=== PATIENT | female | born 1965 | race Caucasian/White ===

== ENCOUNTER 2016-08-29 14:02 | Emergency (ER) | payer OTHER ==
[~2016-08-29] VITALS: Ht 149.9 cm; Wt 77.6 kg
[~2016-08-29 14:02] MED LIST: ATOR-22 PO; CITA40TA4 PO; CRG625 PO; FLNIN/ NAE; GLC850 PO; LEVO112T4 PO; LOSA100T65 PO; NORE1TAB32 PO; PRN1 PO; REPA1TAB42 PO; SITA1TAB27 PO; WLLSR150 PO
[2016-08-29 14:10] VITALS: TEMP 36.7; Ht 149.9 cm; Wt 77.6 kg
[2016-08-29 14:23] VITALS: BP 163/106; PULSE 91; O2SAT 97
--- NOTE | 2016-08-29 14:27 | EMERGENCY ROOM VISIT NOTE ---
History Report prepared by Nacho: Monica Núñez Under the Supervision of: Dr. Lucille Velasquez M.D. First contact with patient: 14:14 Chief Complaint: HYPERTENSION Stated Complaint: HIGH BLOOD PRESSURE 194/119 CALLED DOC History of Present Illness The patient is a 50 year old female who presents to the Emergency Room with complaints of persistent hypertension. She is accompanied by her . The patient went to a [facility] mental health appointment this morning and states her blood pressure was found to be elevated at the appointment, around 160/120. She checked her pressure at a grocery store after the appointment and the highest reading was 194/114. She called her PCPs office after getting home from the store, and they recommended she come to the ED. The patient reports she does not usually check her blood pressure at home, but admits she does have a history of hypertension and takes daily Losartan and Labetalol. She took her medications when she got home this morning, and they provided some relief. She denies any recent changes to her medications. She notes was recently seen here in the ED for the same symptoms in late July. The patient also complains of LUE and low back pain, rating her discomfort as a 5/10. 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 A total of 10 systems reviewed and were otherwise negative. 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, TYPE II OR UNSPEC TYPE, NOT UNCNTRLD (3) HYPERTENSION NOS (4) Hyperthyroidism Family History Diabetes mellitus Hypertension Lung disease Social History Smoking Status: Never Smoker Alcohol Use: none Drug Use: marijuana Marital Status: Housing Status: lives with family Occupation Status: disabled Current/Historical Medications Scheduled Atorvastatin (Lipitor), 20 MG PO QPM Bupropion HCl (Bupropion HCl Sr), 150 MG PO BID Carvedilol (Carvedilol), 6.25 MG PO BID Citalopram (Citalopram Hydrobromide), 40 MG PO QAM Levothyroxine Sodium (Levothyroxine Sodium), 112 MCG PO QAM Losartan Potassium (Cozaar), 100 MG PO QAM Metformin HCl (Metformin HCl), 850 MG PO TID Norethindrone & Eth Estradiol (Cyclafem ), 1 TAB PO DAILY Repaglinide (Repaglinide), 1 MG PO QAM Repaglinide (Prandin), 2 MG PO QD@1200 Repaglinide (Prandin), 1 MG PO QPM Sitagliptin (Januvia), 100 MG PO QAM Scheduled PRN Fluticasone Propionate (Fluticasone Propionate), 2 SPRAYS JW DAILY PRN for Allergy Symptoms Allergies Coded Allergies: Oxaprozin (Unverified Allergy, Severe, lips swelled ;hives, 03/25/15) Naproxen (Verified Allergy, Unknown, FACIAL SWELLING, 03/25/15) POLLEN (Verified Allergy, Unknown, HAY FEVER, 03/25/15) Physical Exam Vital Signs Date Time Temp Pulse Resp B/P Pulse Ox O2 Delivery O2 Flow Rate FiO2 08/29/16 14:23 91 20 163/106 97 Room Air 08/29/16 14:10 36.7 88 18 169/96 97 Room Air Physical Exam CONSTITUTIONAL: The patient appears to be in no acute distress. HEENT: No icterus, moist mucous membranes NECK: No meningismus, trachea is midline. CARDIOVASCULAR: Regular rate, normal perfusion RESPIRATORY: Unlabored breathing. Clear to auscultation. GASTROINTESTINAL: Non-tender GENITOURINARY: No flank tenderness MUSCULOSKELETAL: Full range of motion NEUROLOGIC: No acute gross focal deficits. PSYCHIATRIC: Normal affect SKIN: Normal for ethnicity. Medical Decision & Procedures Medications Administered Medications (Trade) Dose Ordered Sig/Samaria Route Start Time Stop Time Status Last Admin Dose Admin Clonidine HCl (Catapres Tab) 0.1 mg NOW ONCE PO 08/29/16 14:30 08/29/16 14:31 DC 08/29/16 14:33 0.1 MG ED Course 1416: Past medical records reviewed. The patient was evaluated in room B5. A complete history and physical examination was performed. 1428: I reevaluated the patient. I discussed taking Clonidine 0.1 mg if her pressure goes above 171 systolic. She is agreeable with this plan. I will have case management come speak with her about getting an appointment with her PCP's office. 1430: Clonidine 0.1 mg PO. 1436: Case management was able to make the patient an appointment [facility], this coming Thursday morning. 1440: I reevaluated the patient. She is resting comfortably and feeling well. I discussed her discharge instructions and she verbalized complete understanding and agreement. Medical Decision Prior records/ancillary studies reviewed regarding the history above. Triage Nursing notes reviewed. Additional history obtained from the . Differential diagnosis: Etiologies such as benign hypertension and hypertensive emergency. 50-year-old presents to the emergency room for evaluation of hypertension noted on routine [facility]. She denies any symptoms prior to this routine visit at that [facility] today. She became anxious after leaving the clinic and subsequently went to a store where her blood pressure remained elevated at about 190/110. She called her primary care doctor's office and was referred to the ER by front office staff. ROS negative for acute complaints, although she notes chronic vague reports of back pain. Given clondine 0.1mg and paper Rx for Clonidine 0.1mg BID PRN BP > 170 #20. F/ u arranged by case management with PCP on Thursday. Patient/ comfortable with plan. Impression Primary Impression: Hypertension Scribe Attestation The scribe's documentation has been prepared under my direction and personally reviewed by me in its entirety. I confirm that the note above accurately reflects all work, treatment, procedures, and medical decision making performed by me. Departure Information Dispostion Home / Self-Care Referrals Rosalee Hall D.O. (PCP) Patient Instructions ED Hypertension Conf Out Of Control, My [facility]
[2016-08-29] MEDS ORDERED: CLONIDINE HCL 0.1 MG TAB PO ONE (14:30)
== END 2016-08-29 14:57 | disposition home or self-care (01) ==
LOC: C.EDB 14:03
DX: I10 Essential (primary) hypertension (principal); E11.9 Type 2 diabetes mellitus without complications; E05.90 Thyrotoxicosis, unspecified without thyrotoxic crisis or storm; G60.0 Hereditary motor and sensory neuropathy; Z79.84 Long term (current) use of oral hypoglycemic drugs; Z79.899 Other long term (current) drug therapy; Z88.8 Allergy status to other drugs, medicaments and biological substances; Z83.3 Family history of diabetes mellitus; Z82.49 Family history of ischemic heart disease and other diseases of the circulatory system

== ENCOUNTER → 2016-09-15 | Outpatient (CLI) | payer OTHER | END | disposition home or self-care (01) | LOC: C.PAPS 14:15 | PROVIDERS: ATTEND Obstetrics & Gynecology | DX: Z01.411 Encounter for gynecological examination (general) (routine) with abnormal findings (principal) ==

== ENCOUNTER 2017-10-21 10:14 | Emergency (ER) | payer OTHER ==
[~2017-10-21] VITALS: Ht 149.9 cm; Wt 77.6 kg
[~2017-10-21 10:14] MED LIST changes: -GLC850 PO; +METF850T10 PO; +REPA1TAB40 PO; -REPA1TAB42 PO
[2017-10-21 10:17] VITALS: TEMP 36.7; Ht 149.9 cm; Wt 77.6 kg
[2017-10-21] MEDS ORDERED: BUSP15TA70 PO (11:19)
[2017-10-21 11:21] LABS: HEMATOCRIT 37.9 % (37-47); HEMOGLOBIN 13.1 g/dL (12.0-16.0); IG# 0.03 K/uL (0.00-0.02); LYMPH % 35.9 %; LYMPH ABS # 2.63 K/uL (1.2-3.4); MEAN CELL VOLUME 82.2 fL (80-100); MEAN CORPUSCULAR HEMOGLOBIN 28.4 pg (25-34); MEAN CORPUSCULAR HGB CONC 34.6 g/dl (32-36); MONO % 6.1 %; MONO ABS # 0.45 K/uL (0.11-0.59); NEUT % 57.6 %; NEUT ABS # 4.22 K/uL (1.4-6.5); PLATELET COUNT 242 K/uL (130-400); RED CELL DISTRIBUTION WIDTH CV 13.7 % (11.5-14.5); WHITE BLOOD COUNT 7.33 K/uL (4.8-10.8)
[2017-10-21 11:29] LABS: ALBUMIN 3.6 gm/dl (3.4-5.0); ALT/SGPT 35 U/L (12-78); AST/SGOT 21 U/L (15-37); BLOOD UREA NITROGEN 14 mg/dl (7-18); CARBON DIOXIDE 24 mmol/L (21-32); CREATININE 0.72 mg/dl (0.60-1.20); GLUCOSE 172 mg/dl (70-99); LIPASE 215 U/L (73-393); POTASSIUM 4.1 mmol/L (3.5-5.1); SODIUM 137 mmol/L (136-145)
[2017-10-21 11:30] LABS: PTT PATIENT 27.5 SECONDS (21.0-31.0)
[2017-10-21 11:31] LABS: ALKALINE PHOSPHATASE 123 U/L (45-117); TOTAL PROTEIN 7.5 gm/dl (6.4-8.2)
[2017-10-21 13:05] VITALS: BP 146/100; PULSE 71; O2SAT 98
--- NOTE | 2017-10-21 17:04 | EMERGENCY ROOM VISIT NOTE ---
History Report prepared by Nacho: Tom Mast Under the Supervision of: Dr. Shahbaz Gurrola M.D. First contact with patient: 10:53 Chief Complaint: RECTAL BLEEDING Stated Complaint: BLEEDING FROM BUTT, SOB, NAUSEA Nursing Triage Summary: pt has had rectal bleeding since june. states it is a little more today. not enough to wear any type of pad. states no rectal pain. some abd cramping. History of Present Illness The patient is a 51 year old female who presents to the Emergency Room with complaints of rectal bleeding and pain that she has been experiencing sine June of last year, 4 months ago. The patient states that she first had rectal bleeding in June, and was supposed to have a colonoscopy performed. She had to cancel this appointment due to insurance coverage and financial concern. She now has this appointment scheduled for next Thursday, 1 week from today. The patient noted that she experienced an acute worsening of her bleeding today when she had blood "gush out" of her rectum into the toilet. The patient states that her rectum is painful when she has bowel movements. She used some Preparation H last night, which improved her symptoms for a short time. The patient has been vomiting, but there is no black color or blood in this vomit. Source of History: patient Onset: 4 months ago Position: other (Rectal) Quality: other (Rectal bleed) Timing: worsening Modifying Factors (Relieving): other (Preparation H) Associated Symptoms: + vomiting, + abdominal pain Review of Systems See HPI for pertinent positives and negatives. A total of ten systems were reviewed and were otherwise negative. Past Medical & Surgical Medical Problems: (1) Agnxdrf-Maxdv-Wgcfx disease (2) DIAB SUSAN WO COMPL, TYPE II OR UNSPEC TYPE, NOT UNCNTRLD (3) HYPERTENSION NOS (4) Hyperthyroidism Family History Diabetes mellitus Hypertension Lung disease Social History Smoking Status: Former Smoker Alcohol Use: none Drug Use: marijuana Marital Status: Housing Status: lives with family Occupation Status: disabled Current/Historical Medications Scheduled Atorvastatin (Lipitor), 20 MG PO QPM Bupropion HCl (Bupropion HCl Sr), 150 MG PO BID Buspirone Hcl (Buspar), Unknown Dose PO BID Carvedilol (Carvedilol), 6.25 MG PO BID Citalopram (Citalopram Hydrobromide), 40 MG PO QAM Levothyroxine Sodium (Levothyroxine Sodium), 112 MCG PO QAM Losartan Potassium (Cozaar), 100 MG PO QAM Metformin HCl (Metformin HCl), 850 MG PO TID Norethindrone & Eth Estradiol (Cyclafem ), 1 TAB PO DAILY Repaglinide (Repaglinide), 1 MG PO BID Repaglinide (Prandin), 1.5 MG PO QD@1200 Sitagliptin (Januvia), 100 MG PO QAM Allergies Coded Allergies: Oxaprozin (Unverified Allergy, Severe, lips swelled ;hives, 10/21/17) Naproxen (Verified Allergy, Unknown, FACIAL SWELLING, 10/21/17) POLLEN (Verified Allergy, Unknown, HAY FEVER, 10/21/17) Sulfa Antibiotics (Unverified Allergy, Unknown, ., 10/21/17) Physical Exam Vital Signs Date Time Temp Pulse Resp B/P (MAP) Pulse Ox O2 Delivery O2 Flow Rate FiO2 10/21/17 13:05 71 18 146/100 98 10/21/17 12:17 71 16 127/77 98 Room Air 10/21/17 10:17 36.7 87 18 153/94 98 Room Air Physical Exam Physical Exam GENERAL: She is oriented to person, place, and time. She appears well- developed and well-nourished. She does not appear distressed. ____ HENT: Exam performed. Head: Normocephalic and atraumatic. Right Ear: External ear normal. No mastoid tenderness. Left Ear: External ear normal. No mastoid tenderness. Mouth/Throat: The oropharynx is clear and moist. No trismus in the jaw. No dental abscesses or uvula swelling. No oropharyngeal exudate or tonsillar abscesses. ____ EYES: Conjunctivae and EOM are normal. Pupils are equal, round, and reactive to light. Right eye exhibits no discharge. Left eye exhibits no discharge. No scleral icterus. ____ NECK: Normal range of motion. Neck supple. No JVD present. No spinous process tenderness present. No carotid bruit present. No rigidity. No tracheal deviation and normal range of motion present. No Brudzinski's sign and no Kernig 's sign noted. ____ CV: Normal rate, regular rhythm, normal heart sounds and intact distal pulses. There is no peripheral edema. Palpable radial pulses bue. ____ PULM/CHEST: Effort normal and breath sounds normal. No respiratory distress. No stridor. She has no wheezes. She has no rales. Chest Wall: She exhibits no tenderness. ____ ABD: The abdomen is soft. Bowel sounds are normal. She has no distension. No mass is present. There is no tenderness. There is no rebound, no guarding, no Nunez's sign and no tenderness at McBurney's point. Rovsig negative MUSC/SKEL: Normal range of motion. There is no peripheral edema, tenderness or deformity. LYMPH: No cervical adenopathy. ____ NEURO: She is alert and oriented to person, place, and time. She has normal strength. No cranial nerve deficit or sensory deficit. Coordination and gait normal. GCS eye subscore is 4. GCS verbal subscore is 5. GCS motor subscore is 6. Cerebellar tests wnl. ____ SKIN: Skin is warm and dry. She is not diaphoretic. ____ PSYCH: She has a normal mood and affect. Her behavior is normal. Judgment and thought content normal. ____ RECTAL: Rectal exam reveals an anal fissure, Hemoccult positive. No bright red blood per rectum. Medical Decision & Procedures Laboratory Results 10/21/17 10:50 Red Blood Count 4.61, Mean Corpuscular Volume 82.2, Mean Corpuscular Hemoglobin 28.4, Mean Corpuscular Hemoglobin Concent 34.6, Mean Platelet Volume 9.0, Neutrophils (%) (Auto) 57.6, Lymphocytes (%) (Auto) 35.9, Monocytes (%) (Auto) 6.1, Eosinophils (%) (Auto) 0.0, Basophils (%) (Auto) 0.0, Neutrophils # (Auto) 4.22, Lymphocytes # (Auto) 2.63, Monocytes # (Auto) 0.45, Eosinophils # (Auto) 0.00, Basophils # (Auto) 0.00 10/21/17 10:50 Test 10/21/17 10:50 White Blood Count 7.33 K/uL (4.8-10.8) Red Blood Count 4.61 M/uL (4.2-5.4) Hemoglobin 13.1 g/dL (12.0-16.0) Hematocrit 37.9 % (37-47) Mean Corpuscular Volume 82.2 fL (80-100) Mean Corpuscular Hemoglobin 28.4 pg (25-34) Mean Corpuscular Hemoglobin Concent 34.6 g/dl (32-36) Platelet Count 242 K/uL (130-400) Mean Platelet Volume 9.0 fL (7.4-10.4) Neutrophils (%) (Auto) 57.6 % Lymphocytes (%) (Auto) 35.9 % Monocytes (%) (Auto) 6.1 % Eosinophils (%) (Auto) 0.0 % Basophils (%) (Auto) 0.0 % Neutrophils # (Auto) 4.22 K/uL (1.4-6.5) Lymphocytes # (Auto) 2.63 K/uL (1.2-3.4) Monocytes # (Auto) 0.45 K/uL (0.11-0.59) Eosinophils # (Auto) 0.00 K/uL (0-0.5) Basophils # (Auto) 0.00 K/uL (0-0.2) RDW Standard Deviation 41.0 fL (36.4-46.3) RDW Coefficient of Variation 13.7 % (11.5-14.5) Immature Granulocyte % (Auto) 0.4 % Immature Granulocyte # (Auto) 0.03 K/uL (0.00-0.02) Prothrombin Time 10.3 SECONDS (9.0-12.0) Prothromb Time International Ratio 1.0 (0.9-1.1) Activated Partial Thromboplast Time 27.5 SECONDS (21.0-31.0) Partial Thromboplastin Ratio 1.1 Anion Gap 7.0 mmol/L (3-11) Est Creatinine Clear Calc Drug Dose 83.2 ml/min Estimated GFR () 112.4 Estimated GFR (Non- 97.0 BUN/Creatinine Ratio 20.0 (10-20) Calcium Level 9.0 mg/dl (8.5-10.1) Total Bilirubin 0.3 mg/dl (0.2-1) Direct Bilirubin < 0.1 mg/dl (0-0.2) Aspartate Amino Transf (AST/SGOT) 21 U/L (15-37) Alanine Aminotransferase (ALT/SGPT) 35 U/L (12-78) Alkaline Phosphatase 123 U/L (45-117) Total Protein 7.5 gm/dl (6.4-8.2) Albumin 3.6 gm/dl (3.4-5.0) Lipase 215 U/L (73-393) Laboratory results reviewed by me ED Course 1100: The patient was evaluated in room A4. A complete history and physical exam was performed. 1245: I reevaluated the patient. Her vital signs are stable and her labs are within normal limits. Her repeat abdominal exam is within normal limits. She will be discharged with follow-up with her PCP and her regularly scheduled appointment for her colonoscopy. Patient advised to continue using Preparation H ointment and suppositories. Also encouraged to eat more fibrous foods such as raw vegetables and fruits.DISCHARGE - Plan of care discussed with patient and questions answered. The patient was given both verbal and printed discharge instructions. The patient verbalized understanding and ability to comply. The patient is to seek outpatient follow up as noted in the discharge instructions. The patient verbalized understanding and ability to comply. The patient is discharged in stable condition. The patient was instructed to return for worsening symptoms. Medical Decision vital signs are stable and her labs are within normal limits. Her repeat abdominal exam is within normal limits. She will be discharged with follow-up with her PCP and her regularly scheduled appointment for her colonoscopy. Patient advised to continue using Preparation H ointment and suppositories. Also encouraged to eat more fibrous foods such as raw vegetables and fruits.DISCHARGE - Plan of care discussed with patient and questions answered. The patient was given both verbal and printed discharge instructions. The patient verbalized understanding and ability to comply. The patient is to seek outpatient follow up as noted in the discharge instructions. The patient verbalized understanding and ability to comply. The patient is discharged in stable condition. The patient was instructed to return for worsening symptoms. Medication Reconcilliation Current Medication List: was personally reviewed by me Blood Pressure Screening Patient's blood pressure: Elevated blood pressure Blood pressure disposition: Elevated BP felt to be situational Impression Primary Impression: Anal fissure Additional Impression: Lower GI bleed Scribe Attestation The scribe's documentation has been prepared under my direction and personally reviewed by me in its entirety. I confirm that the note above accurately reflects all work, treatment, procedures, and medical decision making performed by me. The chart was completed utilizing [employer] voice recognition software. Grammatical errors, random word insertions, pronoun errors, and incomplete sentences are an occasional consequence of this system due to software limitations, ambient noise, and hardware issues. Any formal questions or concerns about the content, text, or information contained within the body of this dictation should be directly addressed to the physician for clarification. Departure Information Dispostion Home / Self-Care Referrals Rosalee Hall D.O. (PCP) Forms HOME CARE DOCUMENTATION FORM, IMPORTANT VISIT INFORMATION, WORK / SCHOOL INSTRUCTIONS Patient Instructions My [facility] Additional Instructions Go to your regular scheduled colonoscopy next week. Return to the emergency department if you develop fever greater 100.4, continue blood loss 2 stools, develop chest pain, shortness of breath, lose consciousness , blood in her vomit, or severe abdominal pain. Use [id number] Preparation H suppositories and cream over your rectal area. Problem Qualifiers
== END 2017-10-21 13:05 | disposition home or self-care (01) ==
LOC: C.EDB 10:16 → C.EDA 13:05
DX: K92.2 Gastrointestinal hemorrhage, unspecified (principal); K60.2 Anal fissure, unspecified; E11.9 Type 2 diabetes mellitus without complications; I10 Essential (primary) hypertension; E05.90 Thyrotoxicosis, unspecified without thyrotoxic crisis or storm; Z87.891 Personal history of nicotine dependence; Z79.899 Other long term (current) drug therapy; Z91.048 Other nonmedicinal substance allergy status; Z88.2 Allergy status to sulfonamides; Z88.8 Allergy status to other drugs, medicaments and biological substances

== ENCOUNTER 2020-12-28 08:41 | Observation (INO) ==
--- NOTE | 2020-11-30 16:10 | PAT Medication Instructions ---
Medication Instructions Date of Service November 30, 2020 Home Medications Medication Instructions Recorded inhalational spacing device #1 ea 03/20/20 metformin 850 mg tablet 850 mg PO TID #270 tab 04/23/20 albuterol sulfate 90 mcg/actuation 2 puff INHALATION .COMPLEX PRN 06/22/20 aerosol inhaler #8.5 g buspirone 5 mg tablet 5 mg PO BID #60 tab 06/27/20 repaglinide 1 mg tablet 0.5 - 2 mg PO TID #315 tab 07/26/20 carvedilol 6.25 mg tablet 6.25 mg PO BID #180 tab 10/26/20 bupropion HCl (smoking deter) 150 150 mg PO BID #60 tab 11/15/20 mg tablet,12 hr sustained-release(smoking deterrent) metformin 850 mg tablet 850 mg PO TID albuterol sulfate 90 mcg/actuation aerosol inhaler 2 puff INHALATION .COMPLEX PRN buspirone 5 mg tablet 5 mg PO BID repaglinide 1 mg tablet 0.5 - 2 mg PO TID magnesium 250 mg tablet 250 mg PO .M, W, F carvedilol 6.25 mg tablet 6.25 mg PO BID bupropion HCl (smoking deter) 150 mg tablet,12 hr sustained-release 150 mg PO BID acetaminophen [Tylenol Extra Strength] 1,000 mg PO Q6H PRN amlodipine 10 mg PO QPM atorvastatin 20 mg PO QPM citalopram 40 mg PO QAM levothyroxine 112 mcg PO QAM losartan 100 mg PO QAM sitagliptin [Januvia] 100 mg PO QAM DO NOT take the morning of surgery metformin 850 mg tablet 850 mg PO TID repaglinide 1 mg tablet 0.5 - 2 mg PO TID magnesium 250 mg tablet 250 mg PO .M, W, F losartan 100 mg PO QAM sitagliptin [Januvia] 100 mg PO QAM Take morning of surgery With a small sip of water, OTHERWISE NOTHING TO EAT OR DRINK AFTER MIDNIGHT: albuterol sulfate 90 mcg/actuation aerosol inhaler 2 puff INHALATION .COMPLEX PRN (if needed, and bring with you to the hospital) buspirone 5 mg tablet 5 mg PO BID carvedilol 6.25 mg tablet 6.25 mg PO BID bupropion HCl (smoking deter) 150 mg tablet,12 hr sustained-release 150 mg PO BID acetaminophen [Tylenol Extra Strength] 1,000 mg PO Q6H PRN (if needed, may be taken up to four hours before surgery) citalopram 40 mg PO QAM levothyroxine 112 mcg PO QAM Take evening before surgery metformin 850 mg tablet 850 mg PO TID albuterol sulfate 90 mcg/actuation aerosol inhaler 2 puff INHALATION .COMPLEX PRN (if needed) buspirone 5 mg tablet 5 mg PO BID repaglinide 1 mg tablet 0.5 - 2 mg PO TID carvedilol 6.25 mg tablet 6.25 mg PO BID bupropion HCl (smoking deter) 150 mg tablet,12 hr sustained-release 150 mg PO BID acetaminophen [Tylenol Extra Strength] 1,000 mg PO Q6H PRN (if needed) amlodipine 10 mg PO QPM atorvastatin 20 mg PO QPM Other Notes If you have any questions please call us at [phone] or [phone] or [phone] or [phone]
--- NOTE | 2020-12-04 09:48 | Anesthesiology Consultation ---
Date of Service December 04, 2020 Assessment & Plan (1) Encounter for pre-operative examination: Chart Review Chart Review: Acceptable Risk for Surgery (pending cardiac clearance and preop Covid testing ) and Patient seen in Pre Admission Testing - Check BSG AM DOS - Did inform PCP of patient's daily palpitations each morning. Per PCP- patient never mentioned this symptom during preop assessment- if concerned would recommend cardio clearance. Did speak with patient on 12/05/20- still getting palpitations. Did see cardio after 2014 ABRAN (reason unknown)- will have patient get set up for cardiac clearance to ensure no further cardiac testing needed. Per PAT appt on 12/04/20, pt resides in [facility]. Wears mask, uses good hand hygiene and socially distances. No known Covid positive contacts or Covid related symptoms. No known Covid infection in the past 90 days. Preop Covid testing 12/26/20= will await results. Educated on importance of self quarantining, social distancing and wearing mask in public both for the patient and household contacts. Pt vaccinated Seen by PCP 11/29/20= seen or preoperative clearance for upcoming left ABRAN. "No major issues at this time... Otherwise based on physical examination and history the patient is at moderate risk for her procedure scheduled on 12/28/2020." Right ABRAN 02/14/15= Done under [facility] at L3-4. "Spinal anesthesia placed by medical student under direct supervision. See note. " Teaching & Discussion Pre-Anesthesia Teaching/Discussion Notes: Instructed NPO after midnight before surgery,except medications with 15 cc of water. Medication instructions provided according to the PAT guidelines. History Surgery Operation Date: 12/28/20 11:10 Proposed Procedures p Left Lateral Total Hip Arthroplasty - Juanjo Nina DO Height/Weight Height: 4 ft 11 in Weight: 73.4 kg Allergies Allergy/AdvReac Type Severity Reaction Status Date / Time oxaprozin Allergy Severe lips Verified 11/29/20 13:55 swelled ;hives naproxen Allergy Unknown FACIAL Verified 11/29/20 13:55 SWELLING pollen extracts Allergy Unknown HAY FEVER Verified 11/29/20 13:55 Sulfa (Sulfonamide Allergy Unknown Unknown Verified 11/29/20 13:55 Antibiotics) Medications Home Medications Medication Instructions Recorded Confirmed Last Taken inhalational spacing device #1 ea 03/20/20 11/29/20 Unknown metformin 850 mg tablet 850 mg PO TID #270 tab 04/23/20 11/29/20 Unknown albuterol sulfate 90 mcg/actuation 2 puff INHALATION .COMPLEX PRN 06/22/20 11/29/20 Unknown aerosol inhaler #8.5 g buspirone 5 mg tablet 5 mg PO BID #60 tab 06/27/20 11/29/20 Unknown repaglinide 1 mg tablet 0.5 - 2 mg PO TID #315 tab 07/26/20 11/29/20 Unknown magnesium 250 mg tablet 250 mg PO .M, W, F tab 09/27/20 11/29/20 Unknown carvedilol 6.25 mg tablet 6.25 mg PO BID #180 tab 10/26/20 11/29/20 Unknown bupropion HCl (smoking deter) 150 150 mg PO BID #60 tab 11/15/20 11/29/20 Unknown mg tablet,12 hr sustained-release(smoking deterrent) Marijuana 1 inh INHALATION DAILY 11/29/20 11/29/20 Unknown acetaminophen [Tylenol Extra 1,000 mg PO Q6H PRN 11/29/20 11/29/20 Unknown Strength] amlodipine 10 mg PO QPM 11/29/20 11/29/20 Unknown atorvastatin 20 mg PO QPM 11/29/20 11/29/20 Unknown citalopram 40 mg PO QAM 11/29/20 11/29/20 Unknown levothyroxine 112 mcg PO QAM 11/29/20 11/29/20 Unknown losartan 100 mg PO QAM 11/29/20 11/29/20 Unknown sitagliptin [Januvia] 100 mg PO QAM 11/29/20 11/29/20 Unknown Past Medical History Medical History Chronic back pain CMT (Dknswuu-Bjgst-Pdjfv disease) GENERALIZED WEAKNESS-F/U PCP Depression Diabetes mellitus, type 2 Does not checked BSG at home GERD (gastroesophageal reflux disease) Relatively controlled and stable- diet dependent Hyperlipidemia Hypertension Hypothyroidism Surgically induced SOB (shortness of breath) on exertion Able to on flat surface with walker without significant symptoms Exercise / Class Metabolic Activity III < 4 Walking/Shop/Light housework (able to ambulate on flat surface with walker without significant SOB or chest pain ) Past Family History Family History Father Aneurysm Family history of diabetes mellitus Grandmother (Maternal) Aneurysm Family history of diabetes mellitus Grandfather (Maternal) Aneurysm Mother Family history of diabetes mellitus Grandmother (Paternal) Family history of diabetes mellitus Denies family history of Colon cancer Ovarian cancer Prostate cancer Myocardial infarction Breast cancer Past Surgical History Surgical History (Updated 12/04/20 @ 11:09 by Jazmyn Pate PA-C) History of anesthesia reaction LOW BP POST OP WITH RIGHT HIP SURGERY 2014 [facility] ANESTHESIA RECORD REVIEWED- NO SIGNIFICANT ISSUES- NO RECORDS AVAILABLE RE: PACU VITALS History of colonoscopy 2019 S/P foot surgery, left S/P foot surgery, right S/P thyroidectomy Secondary to hyperthyroidism Status post right hip replacement 2014 Past Anesthesia History No Hx of Anesthesia Complications (with exception to right ABRAN- hypotensive post op ) and No Family Hx of Anesthesia Complications History of PONV No Hx of PONV and No Hx of Motion Sickness Social History Smoking Status: Never smoker Do You Dip or Chew Tobacco: No Hx Alcohol Use: Yes Alcohol type: wine alcohol intake frequency: a few times a month Hx Substance Use: Yes substance use type: marijuana Substance Use Type Other:: INHALES MARIJUANA ALL DAY EVERY DAY Review of Systems Occ palpitations- usually in the morning. Denies anxiety. Last several minutes (will send note to PCP) Mild cough secondary post nasal drip for allergies Hx of snoring- no witnessed apnea. No hx of sleep study Hx of blood transfusion - s/p second hip surgery (secondary to infection) Patient denies chest pain, shortness of breath at rest, wheezing. No hx of seizures, stroke, ME. No hx of blood clots. Physical Exam Vital Signs VITALS BP 123/73 P 71 TEMP 98.1 SP02 96% RESP 16 Constitutional no acute distress ENMT Mouth: no TMJ clicking Thyromental Distance: > or= 3.5 Finger Breadths (3.5) Mallampati Class: III Denies missing or loose tteht Neck neck extension not limited Respiratory normal respiratory effort; no respiratory distress Auscultation: lungs clear to auscultation bilaterally; no wheezes Cardiovascular Rate/Rhythm: regular rate and regular rhythm Heart Sounds: no murmur Vessels: no carotid bruit Musculoskeletal Spine: no pain with cervical ROM Extremities: extremities normal to inspection Psychiatric Orientation: alert Lab Results Anesthesia Preop Results Results Anesthesia Widget: WBC 6.16 K/uL (4.8-10.8) 12/04/20 Hgb 12.7 g/dL (12.0-16.0) 12/04/20 Hct 38.6 % (37-47) 12/04/20 Plt 268 K/uL (130-400) 12/04/20 Na 140 mmol/L (136-145) 12/04/20 K 4.2 mmol/L (3.5-5.1) 12/04/20 Cl 107 mmol/L (98-107) 12/04/20 CO2 27 mmol/L (21-32) 12/04/20 BUN 16 mg/dl (7-18) 12/04/20 Creat 0.48 mg/dl (0.6-1.2) L 12/04/20 Glucose Level 124 mg/dl (70-99) H 12/04/20 PT 10.1 Seconds (9.0-12.0) 12/04/20 PTT 26.8 Seconds (21.0-31.0) 12/04/20 INR 1.0 (0.9-1.1) 12/04/20 HA1c 7.4 % (4.5-5.6) H 12/04/20 Blood Type B Positive 12/04/20 Antibody Screen NEGATIVE 12/04/20 Testing Electrocardiogram Date: 12/04/20 Findings: + NSR @ (68bpm) Normal EKG per cardio. Chest X-Ray Date: 12/04/20 FINDINGS: Lung volumes are at the lower limits of normal. This is unchanged. There is no pneumothorax or pleural effusion. There is no evidence for pulmonary edema or pneumonia. Cardiac size is normal. Mediastinal contours are normal. A right midlung density is unchanged from earlier exams. This is benign given stability. IMPRESSION: No acute cardiopulmonary findings.
--- NOTE | 2020-12-26 10:43 | History & Physical Report ---
Date of Service December 26, 2020 Assessment & Plan (1) Osteoarthritis of left hip: We will proceed with a left total hip arthroplasty. Postoperatively she will be started on aspirin for DVT prophylaxis and kept overnight in the hospital for postoperative medical management. She plans to use home health upon discharge. History of Present Illness Chief Complaint: Advanced osteoarthritis of the left hip. Primary Care Provider: Sheryl Mathew MD Isamar is a pleasant 55-year-old female who has a history of Awgfuoa-Gerat-Lsdpn disease. It has been getting progressively worse. She has been using a rolling walker. She does have a history of a right hip replacement done by Dr. Tong in 2014. She has done well with that. Unfortunately she has been having worsening left hip pain. X-rays and clinical examination been diagnostic for advanced osteoarthritis of her left hip. After failing conservative treatment, she has elected proceed with a left total hip arthroplasty.. Allergies Allergy/AdvReac Type Severity Reaction Status Date / Time oxaprozin Allergy Severe lips Verified 12/14/20 08:58 swelled ;hives naproxen Allergy Unknown FACIAL Verified 12/14/20 08:58 SWELLING pollen extracts Allergy Unknown HAY FEVER Verified 12/14/20 08:58 Sulfa (Sulfonamide Allergy Unknown Unknown Verified 12/14/20 08:58 Antibiotics) Home Medications Medication Instructions Recorded Confirmed Type inhalational spacing device #1 ea 03/20/20 12/14/20 Rx metformin 850 mg tablet 850 mg PO TID #270 tab 04/23/20 12/14/20 Rx albuterol sulfate 90 mcg/actuation 2 puff INHALATION .COMPLEX PRN 06/22/20 12/14/20 Rx aerosol inhaler #8.5 g buspirone 5 mg tablet 5 mg PO BID #60 tab 06/27/20 12/14/20 Rx repaglinide 1 mg tablet 0.5 - 2 mg PO TID #315 tab 07/26/20 12/14/20 Rx magnesium 250 mg tablet 250 mg PO .M, W, F tab 09/27/20 12/14/20 History carvedilol 6.25 mg tablet 6.25 mg PO BID #180 tab 10/26/20 12/14/20 Rx bupropion HCl (smoking deter) 150 150 mg PO BID #60 tab 11/15/20 12/14/20 Rx mg tablet,12 hr sustained-release(smoking deterrent) Marijuana 1 inh INHALATION DAILY 11/29/20 12/14/20 History acetaminophen [Tylenol Extra 1,000 mg PO Q6H PRN 11/29/20 12/14/20 History Strength] amlodipine 10 mg PO QPM 11/29/20 12/14/20 History atorvastatin 20 mg PO QPM 11/29/20 12/14/20 History citalopram 40 mg PO QAM 11/29/20 12/14/20 History levothyroxine 112 mcg PO QAM 11/29/20 12/14/20 History losartan 100 mg PO QAM 11/29/20 12/14/20 History sitagliptin [Januvia] 100 mg PO QAM 11/29/20 12/14/20 History Past Med/Surg History Medical History Chronic back pain CMT (Pwczdsn-Vuuwz-Vibxo disease) GENERALIZED WEAKNESS-F/U PCP Depression Diabetes mellitus, type 2 Does not checked BSG at home GERD (gastroesophageal reflux disease) Relatively controlled and stable- diet dependent Hyperlipidemia Hypertension Hypothyroidism Surgically induced SOB (shortness of breath) on exertion Able to on flat surface with walker without significant symptoms Surgical History History of anesthesia reaction LOW BP POST OP WITH RIGHT HIP SURGERY 2014 [facility] ANESTHESIA RECORD REVIEWED- NO SIGNIFICANT ISSUES- NO RECORDS AVAILABLE RE: PACU VITALS History of colonoscopy 2019 S/P foot surgery, left S/P foot surgery, right S/P thyroidectomy Secondary to hyperthyroidism Status post right hip replacement 2014 Family History Father Aneurysm Family history of diabetes mellitus Grandmother (Maternal) Aneurysm Family history of diabetes mellitus Grandfather (Maternal) Aneurysm Xkfffqm-Ixech-Btbho disease Mother Family history of diabetes mellitus Fwxmoza-Yaivo-Uhmhc disease Grandmother (Paternal) Family history of diabetes mellitus Sister Zlegxxb-Iqdxq-Siysb disease Denies family history of Colon cancer Ovarian cancer Prostate cancer Myocardial infarction Breast cancer Social History Smoking Status: Never smoker Second Hand Exposure: Yes (SPOUSE USED TO SMOKE); Hx Alcohol Use: Yes Alcohol type: wine Hx Substance Use: Yes Substance Use Type Other:: INHALES MARIJUANA ALL DAY EVERY DAY Preferred Language: Pakistani Communication Ability: Effective Supervisor [employer] Records Division Required: No Beliefs That Will Affect Care: None marital status: Current Living Situation: Spouse current occupational status: unemployed Feels Safe at Home: Yes Childhood Exposure to Second-Hand Smoke: No Dental Care, Regularly: Yes Physical Activity Frequency: 1-2 Times per Week Seatbelt Use: always Sunscreen Use: No Assistive Devices: Cane, Glasses and Walker Review of Systems All systems reviewed & are unremarkable except as noted in HPI & below. Physical Exam On physical examination of the left hip, she ambulates with a wheeled walker due to her CMT disease. She has decreased range of motion with flexion internal and external rotation. She has severe pain with forced internal rotation. She has a small leg but a very large pannus.. Constitutional WD/WN, vitals as above Eyes PERRL, conjunctivae normal, anicteric sclerae ENMT external ear and nose normal, oropharynx normal Neck trachea midline, no thyromegaly Respiratory normal respiratory effort Cardiovascular RRR, no murmur, no edema Gastrointestinal (Abdomen) normal bowel sounds, soft, nontender, no hepatosplenomegaly Psychiatric A+Ox3, euthymic affect Results & Data Results & Data Laboratory Results . Diagnostic Findings X-rays of the left hip shows advanced osteoarthritis with joint space narrowing, osteophyte formation, and kqnc-cx-afna articulation.. PG Care Time/CCT Total # of Minutes Spent Total Time Spent with Patient: Total time spent is greater than 50% in coordination of care (as documented) at patient's floor/unit and/or counseling patient: Coding Level of Care Code None Diagnoses Osteoarthritis of left hip M16.12
[~2020-12-28 08:41] MED LIST changes: +ACETAMINOPHEN 500 MG TAB PO SCH; -ATOR-22 PO; +BUPIVACAINE 0.5 % 5 MG/1 ML PF 10ML VIAL ONE; -CITA40TA4 PO; -CRG625 PO; +FAMOTIDINE 20 MG TAB PO SCH; -FLNIN/ NAE; +GABAPENTIN 600 MG DOSE PO SCH; -LEVO112T4 PO; -LOSA100T65 PO; +LR 60ML/HR IV SCH; -METF850T10 PO; -NORE1TAB32 PO; -PRN1 PO; -REPA1TAB40 PO; -SITA1TAB27 PO; +TRANEXAMIC ACID 1,000 MG **IV Intra-op IV SCH; +TRANEXAMIC ACID 1,000 MG **IV Pre-op IV SCH; -WLLSR150 PO; +ceFAZolin 1000MG 1,000 MG/7.5 ML SYR IV SCH; +dexAMETHasone 4 MG TAB PO SCH
--- NOTE | 2020-12-28 11:59 | History & Physical Bridge Note ---
Date of Service December 28, 2020 History & Physical Bridge Note I have examined the patient, reviewed the History & Physical and in the interval since the performance of the History & Physical I have noted the following changes of clinical significance: no changes noted
[2020-12-28] MEDS ORDERED: MIDAZOLAM HCL 1 MG/ML 2ML VIAL ONE ×2 (12:33)
[2020-12-28] MEDS ORDERED: HYDROmorphone INJ 1 MG/ML SYRINGE IV PRN (12:45)
[2020-12-28] MEDS ORDERED: ONDANSETRON INJ 2 MG/ML 2 ML VIAL IV PRN ×2 (12:45→16:06)
[2020-12-28] MEDS ORDERED: ePHEDrine sulfate 50 MG/ML AMP IV PRN (12:45)
[2020-12-28] MEDS ORDERED: ATROPINE SULFATE 0.1 MG/ML 10ML SYR IV PRN (12:45)
[2020-12-28] MEDS ORDERED: ROPIVACAINE 0.5% HCL/PF 150 MG, BUPIVACAINE 0.75% MPF 20 ML, EPINEPHrine 30MG/30ML (OR ... INSTIL SCH (13:00)
[2020-12-28] MEDS ORDERED: PROPOFOL IV EMULSION 10 MG/ML 20 ML VIAL IV ONE (15:01)
[2020-12-28] MEDS ORDERED: LIDOCAINE 2% 2 ML VIAL/AMP(20MG/ML) INFIL ONE (15:01)
--- NOTE | 2020-12-28 15:07 | XRay Report ---
XR hip LT 1V CLINICAL HISTORY: XTABLE HIP IN OR COMPARISON: October 01, 2018 DISCUSSION: Intraoperative images presented for review shows metallic prosthetic hip joints within the anatomical region of the right hip. Subcutaneous gas and soft tissue defect is seen. Multiple wires and metallic instrumentation is seen within [id number]-[id number]. IMPRESSION: Postoperative changes as detailed above. ACT 112: Negative or not required by law. The above report was generated using voice recognition software. It may contain grammatical, syntax o r spelling errors. Electronically signed by: Danitza Jackson DO 12/28/2020 3:05 PM
--- NOTE | 2020-12-28 15:10 | Operative Report ---
PG Post Operative Report Pre & Post Diagnosis Operation Date: 12/28/20 11:10 Pre-Op Diagnosis: Left Hip Degenerative Joint Disease Post-Op Diagnosis: Left Hip Degenerative Joint Disease I identified the patient and participated in the time-out.: Yes Procedure Operation Date: 12/28/20 11:10 Actual Procedures p Left Lateral Total Hip Arthroplasty-Cemented(Left) - Juanjo Nnia DO Surgeon Juanjo Nina DO Lobster Man Juanjo Carrasco PAC Estimated Blood Loss 300 Findings Consistent with Post-Op Diagnosis Specimens Left femoral head Complications none Disposition Disposition: Recovery Room Indications Isamar is a pleasant 55-year-old female who has been dealing with chronic worsening left hip pain. She has a history of a right hip replacement done in the past. She uses a rolling walker due to CMT disease. X-rays and clinical examination have been diagnostic for advanced osteoarthritis of the left hip. After failing conservative treatment, she has elected proceed with a left total hip arthroplasty. Description of Procedure Implants used I used a [employer] total hip arthroplasty system with a size 0 standard offset Avenir Complete stem, a 48 mm G7 cup with 2 25mm screws, an E1 polyethylene liner, a 32 mm ceramic head with a 0 neck. Isamar arrived at the hospital for the above procedure. She was seen in the preoperative holding area and the operative extremity was identified and signed. She was given a spinal anesthetic, a preoperative antibiotic, and TXA. She was then taken back to the operating room and laid on the table in the supine position. She was given basic sedation. She was then put into the lateral decubitus position. The hip was then prepped and draped in sterile fashion. A timeout was done and the patient and the operative extremity was properly identified. A lateral approach was used. Dissection was taken down to the fascia. The fascia was incised and the abductors were exposed. The anterior third of the abductors were elevated off the greater trochanter. The capsule was excised. The hip was then dislocated out of the joint. The femoral neck was then resected and the head was removed. The acetabulum was exposed. Time was spent doing a complete circumferential capsular and labral release. Sequential reaming of the acetabulum up to a size 47 reamer was done. I was able to get good circumferential bleeding bone. I then impacted a 48 mm G7 cup into place. I got a good press-fit. The manhole cover was placed. 2 25 mm screws were placed. The E1 polyliner was then snapped into place. The surrounding soft tissues were then injected with 100 cc of an orthopedic pain control cocktail. The proximal femur was then exposed. Sequential per broaching to a size 0 broach was done. A standard offset neck and a 32 mm 0 head was then trialed. The hip was then reduced. A single flat plate x-ray was taken. I was happy with the overall alignment of the components and the size of the components. The hip was then dislocated. The broach was then removed. The final size 0 standard offset collared Avenir complete stem was then impacted into place. I was able to get a good press-fit. A 32 mm 0 ceramic head was then impacted into place. The hip was then reduced. The hip was brought through full range of motion and felt to be stable. I was happy with the leg lengths. The wound was then irrigated. The abductors were then tenodesed back to the greater trochanter with transosseous FiberWire sutures and side to side sutures. A 3- minute Betadine lavage was then done. The fascia was then closed with #1 Vicryl suture. Skin was closed with multiple layers of 2-0 Vicryl and vlad. She was then placed in a soft dressing. She was then transferred to a hospital bed and taken to the postanesthesia care unit in stable condition. She tolerated the procedure well. Juanjo Carrasco PA-C, was present for the entire procedure. He was critical for patient positioning, prepping, draping, retraction exposure, wound closure and application of sterile dressing. I attest to the content of the Intraoperative Record and any orders documented therein. Any exceptions are noted below.
--- NOTE | 2020-12-28 15:48 | XRay Report ---
AP PELVIS, CROSSTABLE LATERAL LEFT HIP History: Left total hip arthroplasty. Degenerative arthritis. Postop. FINDINGS: The patient is status post a left total hip arthroplasty. The hardware is intact. No fractu re or dislocation. Skin vlad are in place. Evidence for prior right total hip arthroplasty with ex tensive heterotopic ossification surrounding the right hip. IMPRESSION: Left total hip arthroplasty. No evidence for hardware complication. ACT 112: Negative or not required by law. Electronically signed by: Filemon Wolf M.D. 12/28/2020 3:47 PM
--- NOTE | 2020-12-28 15:56 | Anesthesiology Progress Note ---
Date of Service December 28, 2020 Anesthesia Post Procedure Vital Signs Vital Signs: Temp Pulse Pulse Resp BP BP Pulse Ox 12/28/20 15:50 84 16 120/73 94 12/28/20 15:40 85 17 102/81 100 12/28/20 15:30 77 18 97/58 L 100 12/28/20 15:21 36.3 C L 80 24 97/71 L 99 12/28/20 10:17 36.5 C 78 18 138/80 96 12/28/20 09:29 36.7 C 74 16 134/82 96 Pain Intensity Left Hip: Pain Intensity: 6 Transfer of Care Handoff Completed per policy Notes Mental Status: alert / awake / arousable Patient Amnestic to Procedure: Yes Nausea / Vomiting: adequately controlled Pain: adequately controlled Airway Patency, RR, SpO2: stable & adequate BP & HR: stable & adequate Hydration State: stable & adequate Anesthetic Complications: no major complications apparent
[2020-12-28] MEDS ORDERED: NON-FORMULARY MEDICATION (Magnesium 250 mg tablet) PO SCH (16:06)
[2020-12-28] MEDS ORDERED: METOCLOPRAMIDE HCL INJ 5 MG/ML 2 ML VIAL IV PRN (16:06)
[2020-12-28] MEDS ORDERED: HYDROmorphone INJ 0.5 MG/0.5 ML SYR IV PRN (16:06)
[2020-12-28] MEDS ORDERED: MAGNESIUM HYDROXIDE SUSP 30 ML UDC PO PRN (16:06)
[2020-12-28] MEDS ORDERED: ALBUTEROL HFA 8 GM INHALER INH PRN (16:06)
[2020-12-28] MEDS ORDERED: bisacodyL 10 MG SUPP PR PRN (16:06)
[2020-12-28] MEDS ORDERED: NALOXONE HCL 0.4 MG/1 ML VIAL/CARP IV PRN (16:06)
[2020-12-28] MEDS ORDERED: PHARMACY GLYCEMIC MGMT CONSULT PRN (16:15)
[2020-12-28] MEDS: SODIUM CHLORIDE 0.9% 1000ML 1,000 ML IV SCH (16:42)
[2020-12-28] MEDS ORDERED: GLUCOSE 10 TABS/TUBE PO PRN (17:00)
[2020-12-28] MEDS ORDERED: GLUCOSE 40% GEL 15 GM TUBE PO PRN (17:00)
[2020-12-28] MEDS ORDERED: DEXTROSE 50% 50 ML SYRINGE IV PRN (17:00)
[2020-12-28] MEDS ORDERED: CARBOHYDRATES FOR HYPOGLYCEMIA PO PRN (17:00)
[2020-12-28] MEDS ORDERED: GLUCAGON FOR INJ 1 MG VIAL IM PRN (17:00)
[2020-12-28] MEDS ORDERED: INSULIN GLARGINE SOLOSTAR 100 UNITS/ML 3 ML PEN SC SCH (17:15)
[2020-12-28] MEDS: INSULIN ASPART 100 UNITS/ML 3 ML PEN SC SCH ×2 (18:22→21:12)
[2020-12-28] MEDS: oxyCODONE HCL IR 5 MG TAB (IMMEDIATE RELEASE) PO PRN (19:51)
[2020-12-28] MEDS ORDERED: SENNA 8.6 MG TAB PO SCH (21:00)
[2020-12-28] MEDS ORDERED: amLODIPine BESYLATE 5 MG TAB PO SCH (21:00)
[2020-12-28] MEDS ORDERED: ATORVASTATIN 20 MG TAB PO SCH (21:00)
[2020-12-28] MEDS ORDERED: REPAGLINIDE 1 MG TAB PO SCH (21:00)
[2020-12-28] MEDS: buPROPion SR 150 MG TABCR PO SCH (21:01)
[2020-12-28] MEDS: ASPIRIN 81 MG ECTAB PO SCH (21:01)
[2020-12-28] MEDS: DOCUSATE SODIUM 100 MG CAP PO SCH (21:02)
[2020-12-28] MEDS: ceFAZolin 2000MG 2,000 MG/15 ML SYR IV SCH (21:02)
[2020-12-28] MEDS: busPIRone 5 MG TAB PO SCH (21:03)
[2020-12-28] MEDS: carvediloL 6.25 MG TAB PO SCH (21:03)
[2020-12-28] MEDS: ACETAMINOPHEN 500 MG TAB PO SCH (21:58)
[2020-12-29] MEDS: INSULIN ASPART 100 UNITS/ML 3 ML PEN SC SCH ×3 (00:11→09:34)
[2020-12-29] MEDS: oxyCODONE HCL IR 5 MG TAB (IMMEDIATE RELEASE) PO PRN ×2 (00:14→09:40)
[2020-12-29] MEDS: SODIUM CHLORIDE 0.9% 1000ML 1,000 ML IV SCH (04:14)
[2020-12-29] MEDS: ceFAZolin 2000MG 2,000 MG/15 ML SYR IV SCH (04:14)
[2020-12-29] MEDS: ACETAMINOPHEN 500 MG TAB PO SCH (06:03)
[2020-12-29] MEDS ORDERED: LEVOTHYROXINE SODIUM 112 MCG TABLET PO SCH (06:30)
--- NOTE | 2020-12-29 07:00 | Orthopedic Progress Note ---
Date of Service December 29, 2020 Assessment & Plan (1) Status post left hip replacement: Overall she is doing very well. She is having much pain in the left hip. Will await to see what her H&H is today before we discharged home. Her blood pressure is a little low this morning. As long as her labs are stable, and if she does well with physical therapy doing ambulation and range of motion exercises she can be discharged home later today. She is on aspirin for DVT prophylaxis. She can follow-up with orthopedics in 2 weeks. Natalei Penn was seen and examined at bedside this morning. Overall she is doing very well. She is not having any pain in the left hip. She was able to get some sleep last night. She has no complaints.. Review of Systems All systems reviewed & are unremarkable except as noted in HPI & below. Physical Exam On physical examination of the left hip, the leg lengths are equal. She has active dorsiflexion plantarflexion of the left ankle. The dressing is clean and dry.. Results & Data Results & Data Laboratory Results . Diagnostic Findings Postoperative x-rays of the left hip show the prosthesis to be in anatomic alignment without any evidence of fracture, dislocation, or loosening. PG Care Time/CCT Total # of Minutes Spent Total Time Spent with Patient: Total time spent is greater than 50% in coordination of care (as documented) at patient's floor/unit and/or counseling patient: Coding Level of Care Code 55502 Post Operative Follow-Up Diagnoses Status post left hip replacement Z96.642
[2020-12-29 07:08] LABS: Hematocrit (blood only) 27.3 % (37-47); Hemoglobin 9.2 g/dL (12.0-16.0); Mean Corpuscular Hemoglobin 27.1 pg (25-34); Mean Corpuscular Hgb Conc 33.7 g/dL (32-36); Mean Corpuscular Volume 80.3 fL (80-100); Mean Platelet Volume 9.3 fL (7.4-10.4); Platelet Count 248 K/uL (130-400); RDW Coefficient of Variation 15.1 % (11.5-14.5); RDW Standard Deviation 44.7 fL (36.4-46.3)
[2020-12-29 07:26] LABS: Immature Granulocytes # (auto) 0.04 K/uL (0.00-0.02); Immature Granulocytes % (auto) 0.3 %; Lymphocytes # (auto) 1.12 K/uL (1.2-3.4); Lymphocytes % (auto) 9.2 %; Monocytes # (auto) 0.79 K/uL (0.11-0.59); Monocytes % (auto) 6.5 %; Neutrophils # (auto) 10.25 K/uL (1.4-6.5)
[2020-12-29 07:36] LABS: Calcium 8.2 mg/dl (8.5-10.1); Creatinine Clr Calc Pharmacy 90.9 ml/min; Est GFR (African American) 118.3 ml/min; Est GFR (Non-African American) 102.1 ml/min; Potassium 3.8 mmol/L (3.5-5.1)
[2020-12-29] MEDS ORDERED: metFORMIN HCL 850 MG TAB PO SCH (08:45)
[2020-12-29] MEDS ORDERED: CITALOPRAM 40 MG TAB PO SCH (09:00)
[2020-12-29] MEDS ORDERED: SITagliptin PHOSPHATE 100 MG TAB PO SCH (09:00)
[2020-12-29] MEDS ORDERED: LOSARTAN POTASSIUM 50 MG TAB PO SCH (09:00)
[2020-12-29] MEDS ORDERED: MULTIVITAMIN TAB PO SCH (09:00)
[2020-12-29] MEDS: carvediloL 6.25 MG TAB PO SCH (09:33)
[2020-12-29] MEDS: busPIRone 5 MG TAB PO SCH (09:33)
[2020-12-29] MEDS: ASPIRIN 81 MG ECTAB PO SCH (09:33)
[2020-12-29] MEDS: DOCUSATE SODIUM 100 MG CAP PO SCH (09:33)
[2020-12-29] MEDS: buPROPion SR 150 MG TABCR PO SCH (09:33)
--- NOTE | 2021-01-01 06:38 | Discharge Summary ---
Date of Service January 01, 2021 Admission HPI (Per Admitting) Isamar is a pleasant 55-year-old female who has a history of [id number] disease. It has been getting progressively worse. She has been using a rolling walker. She does have a history of a right hip replacement done by Dr. Tong in 2014. She has done well with that. Unfortunately she has been having worsening left hip pain. X-rays and clinical examination been diagnostic for advanced osteoarthritis of her left hip. After failing c onservative treatment, she has elected proceed with a left total hip arthroplasty.. 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 She has decreased range of motion with flexion internal and external rotation. She has severe pain with forced internal rotation. She has a small leg but a very large pannus.. Principal Diagnosis Same as "Discharge Diagnosis" noted below under Discharge Instructions. Discharge Exam On physical examination of the left hip, the leg lengths are equal. She has active dorsiflexion plantarflexion of the left ankle. The dressing is clean and dry.. Discharge Data Procedures Performed Operation Date: 12/28/20 11:10 Actual Procedures p Left Lateral Total Hip Arthroplasty(Left) - Juanjo Nina DO Hospital Course (1) Status post left hip replacement: On December 28, 2020 Isamar arrived at [facility] and underwent a left lateral hip replacement without complication. She had a general anesthetic. Postoperatively she was started on aspirin for DVT prophylaxis and transferred to the general orthopedic floors. Her hospital course was uneventful. On postop day #1 her H&H was stable and her pain was well controlled. She was able to participate well with physical therapy doing ambulation and range of motion exercises. She was then discharged home. She will follow-up with orthopedics in 2 weeks. PG Care Time/CCT Total # of Minutes Spent Total Time Spent with Patient: Total time spent is greater than 50% in coordination of care (as documented) at patient's floor/unit and/or counseling patient: Discharge Plan Discharge Items Patient Disposition: Home - Home Health Services Reason For Visit: Left Hip Degenerative Joint Disease Discharge Diagnosis: Left hip replacement Activity: Resume your previous activity Non-emergency contact: Surgeon Call non-emergency contact if: your wound has increased redness and your wound has increased drainage Follow-up/Referrals: Sheryl Mathew MD [Primary Care Provider] - Diet: Regular Addtl Attending Provider Instructions: Activity and Therapy Recommendations: * If you are using [facility] then therapy will be provided at your home until they feel you have accomplished all of your goals. * If you are using [facility] then Physical Therapy will be provided until they feel you are ready to start Outpatient Physical Therapy. * If you are not using home therapy then Outpatient Physical Therapy should start about 3-5 days from your day of surgery. Therapy will last about 6-10 weeks * You were shown a series of exercises in the hospital. Do these exercises three times each day including the exercises you were shown in physical therapy. * Get up and walk several times each day.~ For the first four weeks, try not to stand or walk for more than one hour at a time. If you do stand or walk for more than one hour, you will not hurt anything, but your leg will likely swell.~~ * As you feel comfortable, you may change from the walker or crutches to a cane and~then to independent walking. Medications: * Narcotic You will likely be sent home from the hospital with a prescription for the narcotic pain medication that worked best throughout your stay. * Aspirin Most patients will be required to take Aspirin 81mg twice a day for 6 weeks after surgery. This is obtained [id number] and a prescription is not necessary. * Other medications may be prescribed for specific circumstances. If you have any questions, please call the office at . * Resume previous home medications unless otherwise instructed TEDs/Elastic Stockings: The white elastic stockings help limit swelling and prevent blood clots from forming in your legs. The more you wear them, the more they work. Wear them for six weeks. Dressing Care: Leave the dressing on for 2 days. After 2 days you can change the dressing as necessary. If the incision is not draining then you may leave the vlad open to air. If there is a little bit of drainage or if the vlad are getting stuck on your clothing then cover the incision with a dry dressing. The vlad will be removed at your 2 week follow-up appointment. Showering: You may shower 5 days after the day of surgery. You may shower with the vlad exposed. Let soapy water run over the vlad and pat them dry. Do not scrub or soak the incision. Things To Watch For: * Drainage from the incision site that occurs more than one week after your surgery. * Increased redness at the incision site. * Fever above 102 degrees Fahrenheit. * Unusual chest pain or shortness of breath. * Call [facility] at with any of the above problems Follow-Up Visit: Follow-up with Dr. Nina's PA (Juanjo Carrasco) 2-3 weeks after your day of surgery. He will remove your vlad and answer any questions. If you have any additional questions or concerns, Dr Nina is usually in the office at the same time and will be available An appointment was probably scheduled when you signed-up for surgery in the office. If you have any questions call Office Instructions: More detailed instructions as well as Frequently Asked Questions were provided in a folder by our office when you signed-up for surgery. Please review these instructions when you get home. If you have any further questions or concerns, please feel free to call the office at [phone] Pending Studies at Discharge: No Stand-Alone Forms: My [facility] Medications and DC Order Prescriptions: New aspirin 81 mg Tablet,Delayed Release (Dr/Ec) 81 mg PO BID 42 Days Qty: 84 RF: 0 oxycodone 5 mg Tablet 5 mg PO Q4H PRN (Reason: pain) Qty: 40 RF: 0 Continued metformin 850 mg tablet 850 mg PO TID Qty: 270 RF: 3 albuterol sulfate [Ventolin HFA] 90 mcg/actuation HFA aerosol inhaler 2 puff inhalation .COMPLEX PRN (Reason: shortness of breath or wheezing) Qty: 8.5 RF: 5 buspirone 5 mg tablet 5 mg PO BID Qty: 60 RF: 5 repaglinide 1 mg tablet 0.5 - 2 mg PO TID Qty: 315 RF: 1 carvedilol 6.25 mg tablet 6.25 mg PO BID Qty: 180 RF: 1 bupropion HCl (smoking deter) 150 mg tablet extended release 12 hr 150 mg PO BID Qty: 60 RF: 5 (DME) inhalational spacing device Spacer See Rx Instructions .ROUTE .MEDSUPPLY Qty: 1 RF: 0 magnesium 250 mg tablet 250 mg PO .M, W, F RF: 0 atorvastatin 20 mg tablet 20 mg PO QPM RF: 0 amlodipine 10 mg tablet 10 mg PO QPM RF: 0 acetaminophen 500 mg Capsule 1,000 mg PO Q6H PRN (Reason: Pain) RF: 0 citalopram 40 mg tablet 40 mg PO QAM RF: 0 losartan 100 mg tablet 100 mg PO QAM RF: 0 levothyroxine 112 mcg tablet 112 mcg PO QAM RF: 0 Januvia 100 mg tablet 100 mg PO QAM RF: 0 Marijuana 1 inh inhalation DAILY RF: 0 Discharge Orders: Discharge Order (Routine); Ordered 12/29/20 Ordered By: Juanjo Lei/Other Patient Handouts: How Your Hip Works Admission Data Admit Date/Time: 12/28/20 15:23 Attending Provider: Juanjo Nina Admit Provider: Juanjo Nina Primary Care Provider: Sheryl Mathew Other Providers: [facility] Other Interventions: Discharge Summary Assessment (RN) Last Done: 12/29/20 10:32
== END 2020-12-29 11:54 | disposition home health service (06) ==
LOC: ASU 08:41 → 3N 08:41